=== PATIENT | female | born 1990 | race Caucasian/White ===

== ENCOUNTER → 2017-12-26 14:28 | Outpatient (CLI) | payer BC, SELFPAY ==
--- NOTE | 2017-12-26 14:30 | US_ITS ---
STUDY: SECOND AND THIRD TRIMESTER OBSTETRICAL ULTRASOUND - LIMITED REASON FOR EXAM: Female, 27 years old. , assessment LMP: April 15, 2017 PRIOR ULTRASOUND: November 07, 2017 TECHNIQUE: Transabdominal evaluation of the pelvis was performed using real-time ultrasound. FINDINGS: There is a single intrauterine fetus. The fetus is in a cephalic presentation. There is demonstrated cardiac activity with a heart rate of 149 bpm. There is a normal amniotic fluid volume. The largest amniotic fluid pocket measures 4.1 cm. The amniotic fluid index (ARTIE) is 9.1 cm. The placenta is anterior in location and is not low lying. There are Grade 1 placental changes. BIOMETRY: BPD: 8.71 cm: 35 weeks, 2 days HC: 31.74 cm: 35 weeks, 5 days AC: 30.51 cm: 34 weeks, 4 days FL: 6.77 cm: 34 weeks, 6 days Age by LMP: 36 weeks, 3 days. LUIZ by LMP: January 20, 2018. age by prior US: weeks, days. LUIZ by prior US: January 21, 2018. age by current US: 35 weeks, 1 days. LUIZ by current US: January 29, 2018. Estimated weight: 2507 grams, +/- 366 grams, 14 percentile. US/OB Limited With Biometrics IMPRESSION: There is a viable intrauterine with estimated gestational age of 35 weeks 1 day by the current ultrasound. No acute abnormalities are seen. Measurements are given above. Electronically Signed: Vanessa Burch MD at 16:17 EST Tel Direct: [phone], Service support ,
== END ==
PROVIDERS: Visit Provider Obstetrics & Gynecology
DX: Z34.93 Encounter for supervision of normal pregnancy, unspecified, third trimester (principal); Z3A.35 35 weeks gestation of pregnancy
CPT/HCPCS: 76816

== ENCOUNTER → 2017-12-26 18:00 | Outpatient (CLI) | payer BC, SELFPAY ==
[2017-12-26 20:32] LABS: Group B Strep DNA By PCR Negative (Negative); Internal Control PASS; Probe Check PASS; Specimen Processing Control PASS
== END ==
PROVIDERS: Visit Provider Obstetrics & Gynecology
DX: O09.92 Supervision of high risk pregnancy, unspecified, second trimester (principal); Z3A.00 Weeks of gestation of pregnancy not specified
CPT/HCPCS: 87081; 87653

== ENCOUNTER 2018-01-04 00:24 | Inpatient (IN) | payer BC, SELFPAY ==
[2018-01-03 23:56] VITALS: BMI 28.1
[2018-01-03 23:56] LABS: Mucous, Urine 0 SEEN /hpf (<or=2+); Red Blood Cells-Urine 0 SEEN /hpf (0-5)
[2018-01-03 23:58] LABS: Color, Urine Yellow (Yellow); Glucose, Dipstick Normal (Normal); Ketone-Dipstick Negative (Negative); Leukocyte Esterase-Dipstick 100 /ul (Negative); Nitrite-Dipstick Negative (Negative); Occult Blood-Urine 10 /ul (Negative); Protein-Dipstick 15 mg/dl (Negative); Urine Bilirubin Dipstick Negative (Negative); Urine Clarity Clear (Clear); Urine Urobilinogen Normal (Normal); Urine pH 6.5 (5.0 - 8.0)
[2018-01-04] VITALS (7 sets, daily range): BP systolic 109–122; BP diastolic 62–81; PULSE 68–93; RESP 14–18; TEMP 36.3–37.3; O2SAT 96–97
[2018-01-04 00:07] LABS: Bacteria RARE /hpf (None Seen)
[2018-01-04 00:08] LABS: Squamous Epithelial Cells - UA 0-5 SEEN /hpf (5-10); White Blood Cells 0-5 SEEN /hpf (0-5)
[2018-01-04] MEDS: Lactated Ringers 1,000 ML 50 ML IV (00:20)
[2018-01-04 00:39] LABS: Hematocrit 33.6 % (37-47); Hemoglobin 10.9 g/dl (12.0-15.0); Mean Corp Hgb Conc 32.4 g/gl (32-36); Mean Corpuscular Hgb 29.2 pg (27.0-32.0); Mean Corpuscular Volume 90.1 fL (81-99); Mean Platelet Vol. 11.9 fl (6.2-12.0); Platelet Count 154 K/mm3 (150-450); RBC Distribution Width CV 13.7 % (11.6-14.6); Red Blood Count 3.73 M/mm3 (4.2-5.4); White Blood Count 9.7 K/mm3 (4.4-11.0)
[2018-01-04 00:49] LABS: Scan Indicated on CBC? Y/N NO
[2018-01-04] MEDS: Oxytocin 30 units/NS 500 ml 30 UNITS/500 ML IV.SOLN 334 UNITS IV (01:43)
[2018-01-04] MEDS: Oxytocin 30 units/NS 500 ml 30 UNITS/500 ML IV.SOLN 167 UNITS IV (01:57)
--- NOTE | 2018-01-04 01:59 | PCM.HP.OB ---
- Problem List (1) Active labor at term Status: Acute History Date of Admission: 01/04/18 Final LUIZ: 01/20/18 Gestational age: 37 Weeks and 5 Days History of this : 27 yo @ 37w5d presents IAL no vb co SROm clear fluid now at presentation and now 6 cm Pertinent Past Medical History: negative PSH: lymphadenectomy OB History: previous term uncomplicated Allergies No Known Allergies Allergy (Unverified 01/03/18 23:18) Smoking Status: Never smoker Alcohol: None Drug Use: none Number of Fetus(es): 1 - 140 moderate variability reactive no decels toco q 2-3 Review of Systems Constitutional: Denies: Chills, Fever, Weight Change HEENT: Denies: Head Aches, Sinus Congestion, Sinus Drainage Cardiovascular: Denies: Chest Pain, Palpitations Respiratory: Denies: Cough, Shortness of breath at rest, Sputum production Gastrointestinal: Reports: Abdominal Pain, Nausea. Denies: Vomiting Genitourinary: Denies: Dysuria Musculoskeletal: Denies: Joint Pain, Joint Tenderness Skin: Denies: Rash, Wounds Neurological: Denies: Numbness, Tingling, Focal weakness Psychiatric: Denies: Anxiety, Depression, Homicidal Ideations, Suicidal Ideations Hematologic/ Lymphatic: Denies: Easy Bruising, Easy Bleeding Physical Exam General: Alert, Oriented x3, No apparent distress Cardiovascular: Regular rate Lungs: Normal air movement Abdomen: Soft, Non Tender, Gravid Estimated gestational size: Small for gestational age Presentation: Cephalic Cervix Dilation (cm): 6 Assessment/Plan Active and Suspected Problems (Last Reviewed 01/02/18 @ 16:10 by Giulia Garcia) Active labor at term (Acute) 27 yo @ 37w5d presents IAL expectant management
--- NOTE | 2018-01-04 02:04 | PCM.OB.VAG ---
- Problem List (1) Active labor at term Status: Acute (2) Normal delivery at term Status: Acute Vaginal Delivery Maternal Presentation: Active Labor, Spontaneous Rupture of Membranes 27 yo 37w5d IAL 6 cm Amniotic Membrane Rupture Type: Spontaneous Amniotic Fluid Description: Clear Final LUIZ: 01/20/18 Gestational age: 37 Weeks and 5 Days Date of Procedure: 01/04/18 Pre-Operative Diagnosis: ial Post-Operative Diagnosis: same Surgery/ Procedure Performed: Spontaneous Vaginal Delivery Type of Anesthesia: None Description of Procedure: Patient began pushing and delivered the head in the YOSELIN presentation. The head was delivered atraumatically. At first it appeared there may be a shoulder dystocia but then it was noted that the anterior lip of the cervix had come out over the anterior shoulder and once this was reduced the anterior and posterior shoulders delivered without complication followed by the rest of the infant and the was placed on the maternal abdomen. Delayed cord clamping was employed for approximately 60 seconds. Cord was clamped and cut and gentle traction was applied to the cord and the placenta delivered spontaneously immediately following it was noted to be intact with three-vessel cord. The perineum and vagina were inspected and noted to have no laceration. EBL was 450 cc. Patient and infant tolerated delivery well. Presentation: YOSELIN Placental Delivery Description: Spontaneous Placenta Disposition: [facility] Cord Vessel Description: 3 Vessels Cord Entanglement: None Estimated Blood Loss: 450 Infant A gender: Female (1 minute): 8 (5 minute): 10 Episiotomy Description: None Laceration: None Medications given after delivery: IV Pitocin Complications: None
--- NOTE | 2018-01-04 02:12 | PCM.DCVAG ---
Discharge Diet: No Restrictions Discharge Activity: Return to Normal Activity, May not drive while taking narcotic pain medications., May Shower May resume sexual activity in: 4-6 weeks Call your doctor if your incision/area has: Continuous Slow Oozing, Sudden Increased Bleeding, Increased Pain/ Swelling, Increased Redness, Foul Smelling Discharge Additional Instructions: If you experience any of the following, contact your healthcare provider. Bleeding that soaks a pad every hour for 2 hours Fever 100.4 or higher Unrelieved incision or abdominal pain Swelling, redness, discharge or bleeding from your incision or episiotomy site Your incision begins to separate Problems urinating (including inability to urinate or burning while urinating). Visual changes Severe headache Flu-like symptoms Pain or redness in one of both of your breasts Pain, warmth, tenderness or swelling in your legs, especially the calf area Frequent nausea and vomiting Symptoms of depression or anxiety If you experience any of the following, call 911 or go to the nearest Emergency Room. Chest pain Problems breathing Seizure activity Partial or complete paralysis of a body part, slurred speech, weakness or drooping of the face, or a sudden inability to walk or hold your balance Allergies/Adverse Reactions: Allergies No Known Allergies Allergy (Unverified 01/03/18 23:18) Medications to take at Discharge vitamin,calcium,qryotlng-vkxy-gwhhw acid tablet 1 tab PO QDAY 10/24/17 Orders to be completed after discharge: Electric breast pump Location: None Selected Please Follow Up With: Shalini Aguilar MD - [phone] When: Call to make an appointment with your doctor in 6 weeks. If you had elevated Blood pressure or 4th degree laceration you will need to be seen in 2 weeks. Primary Care Physician: Care Physician,No Primary [Primary Care Provider] -
--- NOTE | 2018-01-04 02:13 | DCINST_ITS ---
Discharge Diet: No Restrictions Discharge Activity: Return to Normal Activity, May not drive while taking narcotic pain medications., May Shower May resume sexual activity in: 4-6 weeks Call your doctor if your incision/area has: Continuous Slow Oozing, Sudden Increased Bleeding, Increased Pain/ Swelling, Increased Redness, Foul Smelling Discharge Additional Instructions: If you experience any of the following, contact your healthcare provider. * Bleeding that soaks a pad every hour for 2 hours * Fever 100.4 or higher * Unrelieved incision or abdominal pain * Swelling, redness, discharge or bleeding from your incision or episiotomy site * Your incision begins to separate * Problems urinating (including inability to urinate or burning while urinating) . * Visual changes * Severe headache * Flu-like symptoms * Pain or redness in one of both of your breasts * Pain, warmth, tenderness or swelling in your legs, especially the calf area * Frequent nausea and vomiting * Symptoms of depression or anxiety If you experience any of the following, call 911 or go to the nearest Emergency Room. * Chest pain * Problems breathing * Seizure activity * Partial or complete paralysis of a body part, slurred speech, weakness or drooping of the face, or a sudden inability to walk or hold your balance Allergies/Adverse Reactions: Allergies No Known Allergies Allergy (Unverified 01/03/18 23:18) Medications to take at Discharge vitamin,calcium,qxgqqlrn-ftgy-onnuh acid tablet 1 tab PO QDAY 10/24/17 Orders to be completed after discharge: Electric breast pump Location: None Selected Please Follow Up With: Shalini Aguilar MD - [phone] When: Call to make an appointment with your doctor in 6 weeks. If you had elevated Blood pressure or 4th degree laceration you will need to be seen in 2 weeks. Primary Care Physician: Care Physician,No Primary [Primary Care Provider] -
[2018-01-04] MEDS: Naproxen 250 MG Tablet PO (03:21)
[2018-01-04] MEDS: Methylergonovine 0.2 MG/ML Ampul IM (03:48)
[2018-01-04] MEDS: 0.9% Saline Lock 10 ML Syringe IV ×2 (04:18→06:01)
[2018-01-04] MEDS: miSOPROStol 200 MCG Tablet 1000 MCG PO (05:19)
[2018-01-04] MEDS: Carboprost Tromethamine 250 MCG/ML Ampul IM (05:25)
[2018-01-04] MEDS: Ondansetron 4 MG/2 ML Vial IV (06:01)
[2018-01-04] MEDS: Acetaminophen 500 MG Tablet 1000 MG PO (06:13)
[2018-01-04] MEDS: Ibuprofen 600 MG Tablet PO ×3 (09:22→20:58)
[2018-01-05] MEDS: Ibuprofen 600 MG Tablet PO (05:57)
[2018-01-05 05:59] VITALS: BP 124/77; PULSE 80; RESP 16; TEMP 36.9; O2SAT 100
[2018-01-05 08:00] VITALS: BP 105/59; PULSE 70; RESP 18; TEMP 36.4; O2SAT 100
--- NOTE | 2018-01-05 10:29 | PCM.PN.OB ---
Patient Problems: Active and Suspected Problems (Last Reviewed 01/02/18 @ 16:10 by Giulia Garcia) Active labor at term (Acute) Normal delivery at term (Acute) Subjective: doing well no complaints - Physical Exam General: Alert, Oriented x3 Vital Signs Temp Pulse Resp BP Pulse Ox 97.6 F L 70 18 105/59 L 100 01/05/18 08:00 01/05/18 08:00 01/05/18 08:00 01/05/18 08:00 01/05/18 08:00 Oxygen Delivery Method Room Air Weight: 185 lb 3.013 oz Body Mass Index (BMI) 28.1 Intake and Output for Last 24 Hours 01/03/18 01/04/18 01/06/18 23:59 23:59 00:59 Intake Total 1455 / 1455 Output Total 1600 / 1600 Balance -145 / -145 Assessment/Plan Active and Suspected Problems (Last Reviewed 01/02/18 @ 16:10 by Giulia Garcia) Active labor at term (Acute) Normal delivery at term (Acute) doing well no complaints
== END 2018-01-05 11:45 | disposition home or self-care (01) | DRG 775 ==
LOC: WPOUT 00:25
PROVIDERS: Admitting Provider Obstetrics & Gynecology; Visit Provider Obstetrics & Gynecology
DX: O36.5930 Maternal care for other known or suspected poor fetal growth, third trimester, not applicable or unspecified (principal); Z37.0 Single live birth; Z3A.37 37 weeks gestation of pregnancy
CPT/HCPCS: 59025; 59050; 81001; 85027; 86850; 86900; 99218; J7120; A4216; G0378; J2405

== ENCOUNTER → 2020-09-28 16:30 | Outpatient (CLI) | payer BC, SELFPAY ==
[2020-09-28 12:52] VITALS: BMI 23.6
[2020-10-03 15:31] LABS: HPV APTIMA, High Risk Negative (Negative)
== END ==
PROVIDERS: Visit Provider Nurse Practitioner Women's Health
DX: Z12.4 Encounter for screening for malignant neoplasm of cervix (principal)
CPT/HCPCS: 87624; 88175; G0145

== ENCOUNTER → 2023-11-29 | Outpatient (CLI) | payer BC, SELFPAY ==
--- OUTSIDE RECORDS SUMMARY | 2023-11-29 18:12 | XMS RPT_ITS | CCD ---
Author Name Unknown Address [address] [place] [address] Organization [facility] Care Team Providers Care Tear Down Man Name Role Phone Shalini Aguilar MD Unavailable [phone] CARIE Arzola RN, Angie Gilliam Unavailable Unavailabl e Lauren, Shalini Unavailable Unavailable Marcanthony, Shalini Unavailable Unavailable No Doctor Assigned, Nodr Unavailable Unavail able Lauren, Shalini Unavailable Unavailable Nanciony, Shalini Unavailable Unavailable No Doctor Assigned, Nodr Unavailable Unavail able Johana, Maty S Unavailable Unavailable Johana, Maty S Unavailable Unavailable No Doctor Assigned, Nodr Unavailable Unavail able Madhavi Medrano Unavailable Unavailable No Doctor Assigned, Nodr Unavailable Unavail able Madhavi Medrano Unavailable Unavailable [facility] Unavailable Unavailable None, No PCP Unavailable Unavailable Allergies Allergy Classification Reported Allergen(s) Allergy Type Date of Onset Reaction(s) Facility (1 source) No Known Allergies; Translations: [No Known Allergies] Propensity to adverse reactions to drug (disorder) [facility] Repository (1 source) No Known Medication Allergies; Translations: [No Known Medication Allergies] Propensity to adverse reactions to drug (disorder) [facility] Repository Medications Completed/Discontinued Medications Medication Drug Class(es) Dates Sig (Normalized) Sig (Original) VIT-FE FUMARATE-FA (3 sources) Start: 06-21-2017 VITAMINS 28-0.8 MG TABS VIT-FE FUMARATE-FA [id number] Giulia Garcia Problems Problem Classification Problem Date Documented Da te Episodic/Chronic Hemorrhage during ; abruptio placenta; placenta previa (3 sources) Placenta previa; Translations: [Complete placenta previa with hemorrhage, second trimester] Onset: 06-21-2017 09-01-2017 Episodic Normal and/or delivery (13 sources) Gestation period, 23 weeks; Translations: [Gestation period, 19 weeks] Onset: 06-21-2017 09-27-2017 Episodic Results Test Name Value Interpretation Reference Range Facil ity Vital Signs Date Time Vital Sign Value Performing Clinician Vera angelia 09-26-2017 15:53-0500 BMI (Body Mass Index) 24.48 kg/m2 Shalini Aguilar MD [facility] [place] 09-26-2017 15:53-0500 BP Diastolic 70 mm[Hg] Shalini Aguilar MD [facility] [place] 09-26-2017 15:53-0500 BP Systolic 118 mm[Hg] Shalini Aguilar MD [facility] [place] 09-26-2017 15:53-0500 Weight 73.03 kg Shalini Aguilar MD [facility] [place] 08-30-2017 14:08-0400 BMI (Body Mass Index) 23.46 kg/m2 Shalini Aguilar MD [facility] [place] 08-30-2017 14:08-0400 Body Temperature 97.9 [degF] Shalini Aguilar MD [facility] [place] 08-30-2017 14:08-0400 BP Diastolic 72 mm[Hg] Shalini Aguilar MD [facility] [place] 08-30-2017 14:08-0400 BP Systolic 106 mm[Hg] Shalini Aguilar MD [facility] [place] 08-30-2017 14:08-0400 Pulse (Heart Rate) 83 /min Shalini Aguilar MD [facility] [place] 08-30-2017 14:08-0400 Respiratory Rate 16 /min Shalini Aguilar MD [facility] [place] 08-30-2017 14:08-0400 Weight 69.99 kg Shalini Aguilar MD [facility] [place] 06-21-2017 09:12-0400 Body Temperature 98.01 [degF] Shalini Aguilar MD [facility] [place] 06-21-2017 09:12-0400 Height 172.72 cm Shalini Aguilar MD [facility] [place] 06-21-2017 09:12-0400 Weight 65.23 kg Shalini Aguilar MD [facility] [place] Encounters Encounter Date Encounter Type Care Provider Facility Start: 01-23-2022 Image Encounter No PCP None zz DO N OT USE - [facility] Only Start: 03-12-2018 End: 03-13-2018 Ambulatory Madhavi Medrano Facility:[facility] Start: 11-02-2017 End: 11-03-2017 Ambulatory Matyjonathan Vaughn Facility:[facility] Start: 10-23-2017 End: 10-24-2017 Ambulatory Shalini Aguilar Facility:[facility] Start: 07-09-2017 End: 07-10-2017 Ambulatory Shalini Aguilar Facility:[facility] Procedures Date Procedure Procedure Detail Performing Clinician Start: 09-26-2017 End: 09-26-2017 Routine OB Visit (Global) Shalini Aguilar MD Work Phone: Start: 08-30-2017 End: 09-01-2017 Routine OB Visit (Global) Shalini Aguilar MD Work Phone: Start: 07-18-2017 End: 07-18-2017 Routine OB Visit (Global) Maty Vaughn [employer] Work Phone: Start: 06-21-2017 End: 06-21-2017 Routine OB Visit (Global) Shalini Aguilar MD Work Phone: Plan of Treatment Date Care Activity Detail Author Start: 10-24-2017 End: 10-24-2017 Appointment Appointment [facility] Start: 09-26-2017 End: 09-26-2017 Appointment Appointment [facility] Start: 09-26-2017 End: 09-26-2017 *CBC with Differential *CBC with Differential [facility] Start: 09-26-2017 End: 09-26-2017 GTT (glucose after 1hr PO glucose) *Glucose, Post Glucose Dose [facility] Start: 09-26-2017 End: 09-26-2017 Us preg uterus real time f/u trnsabdl per fetus US uterus, re-evaluation of size or follow up [facility] [place] Start: 06-21-2017 End: 06-21-2017 *CBC with Differential *CBC with Differential [facility] Start: 06-21-2017 End: 06-21-2017 *GC/Chlamydia *GC/Chlamydia [facility] Start: 06-21-2017 End: 06-21-2017 *HEBSAG - Hep B Surface Antigen 6510 *HEBSAG - Hep B Surface Antigen 6510 [facility] Start: 06-21-2017 End: 06-21-2017 *HIV antibody *HIV antibody [facility] Start: 06-21-2017 End: 06-21-2017 *TS Type and Screen *TS Type and Screen [facility] Start: 06-21-2017 End: 06-21-2017 Reagin antibody presence *RPR [facility] Start: 06-21-2017 End: 06-21-2017 Rubella virus Ab [Units/volume] in Serum *Rubella Screen [facility] [place] Start: 06-21-2017 End: 06-21-2017 Urine culture, bacteria *CUUR - Culture, Urine ([place] Count) [facility] [place] Start: 06-21-2017 End: 06-21-2017 Us preg uterus after 1st trimest 10/28 gestation US OB, >14 weeks [facility] [place] Payers Date Payer Category Payer Unknown Summary Purpose Family History No Family History Records FoundNo Family History Records Found Advance Directives No Advanced Directives Records FoundNo Advanced Directives Records Found Additional Source Comments INFORMATION SOURCE (unrecogn ized section and content) DATE CREATED AUTHOR AUTHOR'S ORGANIZ ATION 06/23/2022 [facility] FOR RECORDS PERTAINING TO PATIENTS WHO ARE OR HAVE BEEN ENROLLED IN A CHEMICAL DEPENDENCY/SUBSTANCEABUSE PROGRAM, SOME INFORMATION MAY BE OMITTED. This clinical summary was aggregated from multiple sources. Caution should be exercised in using it in the provision of clinical care. This summary normalizes information from multiple sources, and as a consequence, information in this document may materially change the coding, format and clinical context of patient data. In addition, data may be omitted in some cases. CLINICAL DECISIONS SHOULD BE BASED ON THE PRIMARY CLINICAL RECORDS. [employer] provides no warranty or guarantee of the accuracy or completeness of information in this document.
[2023-12-05 14:09] LABS: HPV APTIMA, High Risk Negative (Negative)
== END | disposition home or self-care (01) ==
PROVIDERS: Referring Provider Obstetrics & Gynecology; Visit Provider Obstetrics & Gynecology
DX: Z12.4 Encounter for screening for malignant neoplasm of cervix (principal)
CPT/HCPCS: 87624; 88175; G0145